=== PATIENT | female | born 1985 | race Caucasian/White ===

== ENCOUNTER 2016-06-13 02:16 | Outpatient (CLI) | payer OTHER ==
[~2016-06-13] VITALS: Ht 162.6 cm; Wt 66.2 kg
== END 2016-06-13 09:09 | disposition home or self-care (01) ==
LOC: GENOP 02:16
PROVIDERS: Obstetrics & Gynecology
DX: O44.03 Complete placenta previa NOS or without hemorrhage, third trimester (principal); Z3A.34 34 weeks gestation of pregnancy
CPT/HCPCS: 59025; 80307; 81001; 96360; 96361